=== PATIENT | male | born 1950 | race African-American/Black ===

== ENCOUNTER 2018-10-08 10:04 | Inpatient (IN) | payer OTHER ==
[2018-10-08] MEDS ORDERED: ASPIRIN 81 MG CHEWABLE TABLETS PO ONE (10:08)
[2018-10-08] MEDS ORDERED: ADENOSINE 6 MG/2 ML VIAL IVPUSH ONE ×2 (10:15→10:18)
[2018-10-08] MEDS ORDERED: dilTIAZem HCL 50 MG/10 ML - 10 ML VIAL ONE (10:23)
[2018-10-08] MEDS ORDERED: dilTIAZem HCL 50 MG/10 ML - 10 ML VIAL IVPUSH ONE (10:23)
[2018-10-08] MEDS ORDERED: dilTIAZem HCL 30 MG TABLET (FP) PO ONE (10:29)
[2018-10-08] MEDS ORDERED: ASPIRIN 81 MG CHEWABLE TABLETS ONE (10:32)
[2018-10-08] MEDS ORDERED: dilTIAZem HCL 30 MG TABLET (FP) ONE (10:32)
[2018-10-08 10:35] VITALS: BMI 30.7
--- NOTE | 2018-10-08 10:36 | PDOC ---
History of Present Illness - General Chief Complaint: Shortness of Breath Stated Complaint: SHORTHNESS OF BREATH Time Seen by Provider: 10/08/18 10:08 History Source: Patient Exam Limitations: No Limitations - History of Present Illness Initial Comments: 67 yo m w a pmh of HTN and diabetes presents to the ER short of breath and with mild chest pain. The patient has been experiencing increased dyspnea on exertion for the past week which has been getting worse. He became acutely short of breath and developed some palpitations this morning so he came into the ER to be evaluated. Upon arrival to the ER he was tachycardic to 165 and short of breath. He was immediately placed on the monitor and given two large bore IV's. EKG performed showed the patient was in SVT at a rate of 165. We gave the patient 6 mg of adenosine which slowed him down temporarily but the patient quickly reverted back to ~160' s. We then gave the patient a liter of fluid along with diltiazem and the patient's heart rate normalized to ~100. The patient experieced rather quick relief of his symptoms. PCP: Edgard Varma PSH: Left eye surgery Social Hx: Denies smoking, drinking, or other substance usage. Allergies: NKA, NKDA Past History - Past Medical History Allergies/Adverse Reactions: Allergies Allergy/AdvReac Type Severity Reaction Status Date / Time No Known Allergies Allergy Verified 10/08/18 10:24 Home Medications: Ambulatory Orders NIFEdipine XL [Adalat Cc] 30 mg NR DAILY 12/26/11 metFORMIN HCL [Glucophage] 1,000 mg PO BID 12/26/11 Aspirin 81 mg PO DAILY 10/08/18 Cardiac Disorders: Yes (?? valve problem..) COPD: No Diabetes: Yes HTN: Yes - Surgical History Abdominal Surgery: No - Suicide/Smoking/Psychosocial Hx Smoking Status: No Smoking History: Never smoked Have you smoked in the past 12 months: No Number of Cigarettes Smoked Daily: 0 Information on smoking cessation initiated: No Hx Alcohol Use: No Drug/Substance Use Hx: No Review of Systems - Review of Systems Able to Perform ROS?: Yes Constitutional: No: Chills, Diaphoresis, Fever HEENTM: No: Eye Pain, Blurred Vision Respiratory: Yes: Shortness of Breath, SOB with Exertion, SOB at Rest Cardiac (ROS): Yes: Chest Pain, Lightheadedness, Palpitations ABD/GI: No: Constipated, Diarrhea, Nausea, Poor Fluid Intake, Vomiting : No: Burning, Dysuria, Discharge Musculoskeletal: No: Back Pain, Joint Pain Integumentary: No: Bruising, Change in Color, Dryness, Erythema, Pallor, Pruritus, Rash Neurological: No: Headache, Numbness, Paresthesia Psychiatric: No: Anxiety, Depression, Frequent Crying, Stressors Endocrine: No: Excessive Sweating, Flushing, Intolerance to Cold, Intolerance to Heat Hematologic/Lymphatic: No: Anemia, Blood Clots, Easy Bleeding *Physical Exam - Vital Signs Last Vital Signs Temp Pulse Resp BP Pulse Ox 97.3 F L 88 18 115/66 100 10/08/18 10:22 10/08/18 10:29 10/08/18 10:29 10/08/18 10:10/08/18 10:29 - Physical Exam General Appearance: Yes: Nourished, Appropriately Dressed, Moderate Distress, Obese HEENT: positive: EOMI, EBER, Normal ENT Inspection, Normal Voice, TMs Normal Neck: positive: Supple Respiratory/Chest: positive: Lungs Clear, Respiratory Distress, Labored Respiration, Rapid RR. negative: Crackles, Rales, Rhonchi, Stridor, Wheezing Cardiovascular: positive: Regular Rhythm, S1, S2, Tachycardia Vascular Pulses: Dorsalis-Pedis (R): 2+, Doralis-Pedis (L): 2+ Gastrointestinal/Abdominal: positive: Normal Bowel Sounds, Soft Rectal Exam: positive: deferred Lymphatic: negative: Adenopathy Musculoskeletal: positive: Normal Inspection. negative: CVA Tenderness Extremity: positive: Normal Capillary Refill, Normal Inspection, Normal Range of Motion Integumentary: positive: Normal Color, Dry, Warm Neurologic: positive: stockholder II-XII NML intact, Fully Oriented, Alert, Normal Mood/ Affect, Normal Response, Motor Strength 5/5 Procedures - Bedside Ultrasound Bedside Ultrasound: Cardiac Remarks: Patient has a large pericardial effusion and early signs of tamponade. There is mild right ventricular collapse. ED Treatment Course - LABORATORY CBC & Chemistry Diagram: 10/08/18 10:10/08/18 10:04 - RADIOLOGY Radiology Studies Ordered: Category Date Time Status CHEST PA & LAT [RAD] Stat Radiology 10/08/18 10:08 Ordered Radiograph Interpretation: CXR: AP portable chest: Shortness of breath. Supraventricular tachycardia A single apical lordotic view reveals a large heart, unfolded aorta and well expanded lung vasquez. There is no sign of infiltrate or failure. The angles are sharp. The soft tissues are intact. There is a slightly elevated right hemidiaphragm. Impression: Large heart. Elevated right hemidiaphragm. No acute chest pathology. - Medications Given in the ED: ED Medications Discontinued Medications Generic Name Dose Route Start Last Admin Trade Name Al PRN Reason Stop Dose Admin Adenosine 6 mg 10/08/18 10:18 10/08/18 10:10 Adenocard - IVPUSH 10/08/18 10:19 6 mg ONCE ONE Administration Diltiazem HCl 10 mg 10/08/18 10:23 10/08/18 10:23 Cardizem Injection - IVPUSH 10/08/18 10:24 10 mg ONCE ONE Administration Medical Decision Making - Critical Care Time Total Critical Care Time (minutes): 50 Critical Care Statement: The care of this patient involved high complexity decision making to prevent further life threatening deterioration of the patient 's condition and/or to evaluate & treat vital organ system(s) failure or risk of failure. - Medical Decision Making 67 yo m w a pmh of HTN and diabetes presents to the ER short of breath and with mild chest pain. The patient has been experiencing increased dyspnea on exertion for the past week which has been getting worse. He became acutely short of breath and developed some palpitations this morning so he came into the ER to be evaluated. Upon arrival to the ER he was tachycardic to 165 and short of breath. He was immediately placed on the monitor and given two large bore IV's. EKG performed showed the patient was in SVT at a rate of 165. We gave the patient 6 mg of adenosine which slowed him down temporarily but the patient quickly reverted back to ~160' s. We then gave the patient a liter of fluid along with diltiazem and the patient's heart rate normalized to ~100. The patient experieced rather quick relief of his symptoms. VS: Tachycardic, tachypneic DDx IBNLT: ACS/TX, Arrhythmia - SVT vs A-Fib, electrolyte/metabolic disturbance , PNA, pneumothorax, PE, medication side effect. Labs show elevated BNP and negative troponin. Plan: Labs, cardiac monitoring, CXR, PO dilt, Admit Tele. - Patient endorsed to Dr. Ruiz and accepted for admission to telemetry. - D-Dimer sent at request of Dr. Ruiz - D-Dimer elevated. Patient to get CTA to r/o PE. POCUS performed and shows large pericardial effusion. The ECHO suggests that the patient is experiencing early signs of tamponade. - Patient will be transfered to a center with a cardiothoracic surgeon capabilities to obtain a pericardial window. *DC/Admit/Observation/Transfer Diagnosis at time of Disposition: Chest pain, SOB (shortness of breath), Elevated brain natriuretic peptide (BNP ) level, SVT (supraventricular tachycardia), Pericardial effusion - Discharge Dispostion Condition at time of disposition: Guarded Decision to Admit order: Yes - Referrals - Patient Instructions - Post Discharge Activity
[2018-10-08 10:41] LABS: BASO % 0.4 % (0-2.0); EOS % 4.5 % (0-4.5); HEMATOCRIT 42.8 % (35.4-49); HEMOGLOBIN 14.3 GM/dL (11.7-16.9); LYMPH % 37.7 % (8-40); MCH 27.5 pg (25.7-33.7); MCHC 33.4 g/dl (32.0-35.9); MEAN CELL VOLUME 82.3 fl (80-96); MEAN PLT VOLUME 8.4 fl (7.5-11.1); NEUT % 48.4 % (42.8-82.8); PLATELET COUNT 358 K/MM3 (134-434); RDW 13.3 % (11.9-15.9)
[2018-10-08 10:44] LABS: INR 1.13 (0.83-1.09); PROTHROMBIN TIME (PATIENT) 13.4 SEC (9.7-13.0)
[2018-10-08 10:46] LABS: ACTIVATED PTT 34.1 SECONDS (25.2-36.5)
--- NOTE | 2018-10-08 10:47 | PDOC ---
Documentation entered by Janessa Harkins SCRIBE, acting as scribe for Nicholas Whitfield MD. Nicholas Whitfield MD: This documentation has been prepared by the Shahana luciano Sammi, SCRIBE, under my direction and personally reviewed by me in its entirety. I confirm that the documentation accurately reflects all work, treatment, procedures, and medical decision making performed by me. Attending Attestation - Resident Resident Name: Preston Stewart - ED Attending Attestation I have performed the following: I have examined & evaluated the patient, The case was reviewed & discussed with the resident, I agree w/resident's findings & plan - HPI HPI: 10/08/18 10:34 67y/o M HTN, DM in onh until about one week ago, when he began developing dyspnea on exertion which has been constant and progressive, so he presents for evaluation. Pt reports occasional palpitations, comfort at rest but severe dyspnea on exertion without chest pain/pressure. Occasional bouts of light- headedness lasting seconds then resolving, no LOC. no f/c/cough. Did report exacerbation of his seasonal allergies earlier this week, which he self-treats with claritin-D and took this daily for 3-4 days starting about a week ago. Does note an episode of light-headedness after taking the first dose. Colleen any h/o CAD or cardiac arrhythmia. He was seen by his PCP 3d ago but evaluation at that time was wnl. - Physicial Exam PE: 10/08/18 10:38 Presents to the emergency department tachypneic, severely tachycardic to 170, otherwise alert and mentating and ambulating Seen immediately upon arrival and placed on monitor, EKG showed SVT at 169 IV access was obtained, supplemental oxygen was administered, patient was placed on monitoring Heart was regular tachycardia, lungs were clear, no calf tenderness or edema Adenosine 6 mg IV push was administered with expected bradycardia and brief ( about 1 minute) return to sinus rhythm. Patient felt well, tolerated the procedure well. Patient returned to SVT at 170, controlled now with diltiazem IV with improved HR to 90, BP also improved from 99 systolic to 110. abd benign, neuro normal - Critical Care Time Total Critical Care Time: 50 Critical Care Statement: The care of this patient involved high complexity decision making to prevent further life threatening deterioration of the patient 's condition and/or to evaluate & treat vital organ system(s) failure or risk of failure. - Medical Decision Making 10/08/18 10:40 67-year-old male with diabetes and hypertension who presents with dyspnea on exertion for one week, likely caused by SVT, which in turn was potentially caused by ALLERGY medications. Rule out underlying metabolic abnormalities such as electrolytes were DKA, rule out primary cardiac process such as ACS. Continue monitoring SVT converted to sinus with adenosine, then reverted back to SVT. Now controlled with diltiazem IV 1+ oral dose. Check labs, EKGs show T-wave inversions in the lateral leads 1 and aVL and V6 Aspirin Admission for overnight telemetry 10/08/18 11:05 trop negative, Cr 1.6 which is slightly elevated compared from prior from 2011. Lytes/glucose normal. Remains rate-controlled, will admit to tele. CXR with enlarged heart. Heart Score/ECG Review #1 ECG reviewed & interpreted by me at: 10:03 10/08/18 10:45 svt at 167, ST strain pattern lateral leads. #2 ECG reviewed & interpreted by me at: 10:13 General ECG Interpretation: Sinus Rhythm, Normal Rate (103), Normal Intervals ( qtc 421, AK 156), No acute ischemic changes (TWI I/AVL/V6) #3 ECG reviewed & interpreted by me at: 10:28 General ECG Interpretation: Sinus Rhythm, Normal Rate (88), Normal Intervals ( qtc 430), No acute ischemic changes (TWI I/AVL/V6)
[2018-10-08 10:59] LABS: ALK PHOS 109 U/L (45-117); ANION GAP 11 MMOL/L (8-16); BILIRUBIN,TOTAL 1.2 mg/dL (0.2-1); BLOOD UREA NITROGEN 19 mg/dL (7-18); CALCIUM 9.2 mg/dL (8.5-10.1); CHLORIDE 105 mmol/L (98-107); CO2 23 mmol/L (21-32); CREATININE 1.6 mg/dL (0.55-1.3); GLUCOSE,RANDOM 201 mg/dL (74-106); MAGNESIUM 1.9 mg/dL (1.8-2.4); N-TERMINAL BNP 639.4 pg/ml (5-125); POTASSIUM 4.4 mmol/L (3.5-5.1); SGOT/AST 32 U/L (15-37); SGPT/ALT 68 U/L (13-61); SODIUM 138 mmol/L (136-145); TOT PROT 7.8 g/dl (6.4-8.2)
[2018-10-08] MEDS ORDERED: ACETAMINOPHEN 325 MG TABLET (FP) PO PRN (12:07)
--- NOTE | 2018-10-08 12:14 | HP ---
Admitting History and Physical - Primary Care Physician PCP: Edgard Varma - Admission Chief Complaint: I'm short of breath History of Present Illness: Mr Spangler is a very pleasant 67 year old male who comes in with complaint of shortness of breath. He says that it has been going on for approximately 1-2 weeks. He says that mainly occurs with exertion, however it happens with minimal exertion. He says that he gets short of breath standing up, with eating , during shaving, with walking. It also occurs sometimes when he is lying down and he has to sit up. He saw Dr Varma and was examined which he states was normal, an EKG was done at that time and he states nothing was wrong. However he was told that if it recurred he should come back to the office. He says for the past 2 days after being seen it was fine but it occurred today and he came in. 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 He says he was told to stop and walk every 2-3 hours but he has not been able to do that. He also notes that over the past 2-3 months he has swelling in both legs but right greater than left. He notes it occurring more when he is driving and he puts his right leg up at night and it is mostly resolved in the am. He says that he has pain in that leg as well, mainly in the hip area but he attributes that to sitting for long hours. He says today his leg is not painful or swollen but he is lying down. He says with the shortness of breath he has fatigue, weakness, chest discomfort, and palpitations. He has questionable dizziness but denies it being either vertigo or lightheadedness. He denies passing out, chest pain or pressure, coughing, nausea, vomiting, diarrhea, constipation, difficulty or pain on urination. He is currently comfortable. History Source: Patient Limitations to Obtaining History: No Limitations - Past Medical History Cardiovascular: Yes: HTN, Hyperlipdemia Endocrine: Yes: Diabetes Mellitus - Past Surgical History Additional Past Surgical History: L eye surgery, cannot tell me what the surgery was for. Just that it is common in [facility]. Plan for cataract surgery in November. - Smoking History Smoking history: Never smoked Have you smoked in the past 12 months: No Aproximately how many cigarettes per day: 0 - Alcohol/Substance Use Hx Alcohol Use: No History of Substance Use: reports: None - Social History Usual Living Arrangement: Yes: With Spouse ADL: Independent Occupation: contract driver History of Recent Travel: No Home Medications - Allergies Allergies/Adverse Reactions: Allergies Allergy/AdvReac Type Severity Reaction Status Date / Time No Known Allergies Allergy Verified 10/08/18 10:24 - Home Medications Home Medications: Ambulatory Orders NIFEdipine XL [Adalat Cc] 30 mg NR DAILY 12/26/11 metFORMIN HCL [Glucophage] 1,000 mg PO BID 12/26/11 Aspirin 81 mg PO DAILY 10/08/18 Family Disease History - Family Disease History Family History: Denies (says all family members are healthy) Review of Systems Findings/Remarks: Full review of systems obtained, as per HPI and otherwise negative Physical Examination Vital Signs: Vital Signs Temperature 36.3 C L 10/08/18 10:22 Pulse Rate 88 10/08/18 10:40 Respiratory Rate 18 10/08/18 10:40 Blood Pressure 114/77 10/08/18 10:40 O2 Sat by Pulse Oximetry (%) 98 10/08/18 10:40 Constitutional: Yes: Well Nourished, No Distress, Calm Eyes: Yes: Conjunctiva Clear, EOM Intact, PERRL HENT: Yes: Atraumatic, Normocephalic Cardiovascular: Yes: Tachycardia, Pulse Irregular. No: Gallop, Murmur, Rub Respiratory: Yes: Regular, CTA Bilaterally. No: Rales, Rhonchi, Wheezes Gastrointestinal: Yes: Normal Bowel Sounds, Soft. No: Distention, Tenderness Extremities: Yes: WNL Edema: No Labs: CBC, BMP 10/08/18 10:04 10/08/18 10:04 Imaging - Results Chest X-ray: Report Reviewed, Image Reviewed Cat Scan: Pending Ultrasound: Pending Problem List - Problems (1) SOB (shortness of breath) Assessment/Plan: -very concerning for PE considering occupation, long hours of driving, and leg swelling that currently resolved -also considering presented with SVT/sinus tachycardia and SOB -d-dimer slightly elevated, but if occurred 1-2 weeks ago then can be decreased -admit to telemetry -CTA ordered -will give empiric dose of eliquis now -monitor, patient is currently stable -check venous duplex dopplers Code(s): R06.02 - SHORTNESS OF BREATH (2) SVT (supraventricular tachycardia) Assessment/Plan: -presented with SVT in ED -was given adenosine but did not break -then given diltiazem and slowed down -note that it does increase at times when he speaks -very suspicious for PE -as above -also place cardiology consult -will send cardiac enzymes x3 Code(s): I47.1 - SUPRAVENTRICULAR TACHYCARDIA (3) Elevated d-dimer Assessment/Plan: -as above Code(s): R79.89 - OTHER SPECIFIED ABNORMAL FINDINGS OF BLOOD CHEMISTRY (4) HTN (hypertension) Assessment/Plan: -will currently hold nifedipine as is well controlled -monitor Code(s): I10 - ESSENTIAL (PRIMARY) HYPERTENSION (5) HLD (hyperlipidemia) Assessment/Plan: -do not know lipid medication -will hold off as not emergent Code(s): E78.5 - HYPERLIPIDEMIA, UNSPECIFIED (6) Diabetes Assessment/Plan: -creatinine 1.6 so will hold on metformin -diabetic diet -FSBS and SSI Code(s): E11.9 - TYPE 2 DIABETES MELLITUS WITHOUT COMPLICATIONS (7) ANTONETTE (acute kidney injury) Assessment/Plan: -suspect may be secondary from hypotension if was having arrhythmias -hydration with NS -will also give mucomyst since getting CT scan with PE protocol Code(s): N17.9 - ACUTE KIDNEY FAILURE, UNSPECIFIED
[2018-10-08] MEDS ORDERED: ACETYLCYSTEINE 20% 200MG/ML 30 ML VIAL *FOR ORAL / INH USE ONLY PO SCH (12:15)
[2018-10-08] MEDS ORDERED: SODIUM CHLORIDE 1,000 ML IV SCH (12:15)
[2018-10-08] MEDS ORDERED: APIXABAN 5 MG TABLET PO SCH (12:15)
[2018-10-08 13:16] LABS: URINE APPEARANCE CLEAR; URINE BILIRUBIN NEGATIVE (NEGATIVE); URINE COLOR YELLOW; URINE GLUCOSE (UA) NEGATIVE (NEGATIVE); URINE KETONE NEGATIVE (NEGATIVE); URINE LEUK ESTERASE NEGATIVE (NEGATIVE); URINE NITRITE NEGATIVE (NEGATIVE); URINE PROTEIN NEGATIVE (NEGATIVE); URINE UROBILINOGEN 0.2 mg/dL (0.2-1.0)
[2018-10-08] MEDS ORDERED: INSULIN SLIDING SCALE (NOVOLOG) 1 VIAL SQ SCH (16:30)
--- NOTE | 2018-10-08 17:18 | DS ---
Physical Examination Vital Signs: Vital Signs Temperature 36.3 C L 10/08/18 10:22 Pulse Rate 98 H 10/08/18 13:40 Respiratory Rate 30 H 10/08/18 13:40 Blood Pressure 112/77 10/08/18 13:40 O2 Sat by Pulse Oximetry (%) 100 10/08/18 13:40 Constitutional: Yes: Well Nourished, No Distress, Calm Cardiovascular: Yes: Regular Rate and Rhythm. No: Gallop, Murmur, Rub Respiratory: Yes: CTA Bilaterally, On Nasal O2, Tachypnea. No: Regular, Rales, Rhonchi, Wheezes Gastrointestinal: Yes: Normal Bowel Sounds, Soft. No: Distention, Tenderness Extremities: Yes: WNL Edema: No Labs: CBC, BMP 10/08/18 10:04 10/08/18 10:04 Discharge Summary Reason For Visit: ELEVATED BRAIN NATRIURETIC PEPTIDE(BNP) LEVEL Current Active Problems ANTONETTE (acute kidney injury) (Acute) Chest pain (Acute) Diabetes (Acute) Elevated brain natriuretic peptide (BNP) level (Acute) Elevated d-dimer (Acute) HLD (hyperlipidemia) (Acute) HTN (hypertension) (Acute) SOB (shortness of breath) (Acute) SVT (supraventricular tachycardia) (Acute) Hospital Course: Mr Spangler is a very pleasant 67 year old male who comes in with complaint of shortness of breath. He presented to the ED and was found to have SVT, he was given adenosine but this did not control it. He was then given IV and oral diltiazem and his heart rate became controlled. He was also placed on oxygen and he felt improved. At this point I was called for admission, please refer to my H&P but per his history I was very concerned for PE. D-dimer was ordered and was slightly elevated, so CT scan with PE protocol and venous duplex dopplers were ordered and performed. Because I noted that when he spoke his HR would elevate, I was concerned he might be unstable and gave empiric eliquis 10mg x1 and admitted him to telemetry. CT scan came back negative for PE but positive for pericardial effusion. Call was placed to Dr Boyd who was made aware of the situation and recommended admission to either telemetry or ICU. Because patient was having episodes of tachycardia and tachypnea I planned to escalate from telemetry to ICU, call was placed and spoke with the critical care nurse practitioner. After discussion there was concern that we do not have the services appropriate to treat this patient urgently, especially if he became acutely unstable. A bedside ECHO was performed by the ER (we do not have ECHO services on the weekend), and he was found to have the beginnings of tamponade per bedside ECHO. At this point it was felt by all physicians involved in Mr Spangler's care that he would be better served by transferring to a tertiary care center. Case was discussed with him and his daughters and they decided they would prefer transfer to [facility] for further care. Dr Boyd was called back and he the findings of the bedside ECHO were discussed, he accepted the patient in transfer to [facility]. Condition: Guarded - Instructions Referrals: Edgard Varma MD [Primary Care Provider] - Disposition: TRANSFER ACUTE CARE/OTHER HOSP - Home Medications Comprehensive Discharge Medication List: Ambulatory Orders NIFEdipine XL [Adalat Cc] 30 mg NR DAILY 12/26/11 metFORMIN HCL [Glucophage] 1,000 mg PO BID 12/26/11 Aspirin 81 mg PO DAILY 10/08/18
[2018-10-08 18:01] VITALS: BP 137/78; PULSE 87; TEMP 98.2
--- NOTE | 2018-10-09 08:55 | EKG ---
Test Reason : Blood Pressure : / mmHG Vent. Rate : 167 BPM Atrial Rate : 166 BPM P-R Int : 000 ms QRS Dur : 088 ms QT Int : 274 ms P-R-T Axes : 000 025 159 degrees QTc Int : 457 ms POOR DATA QUALITY, INTERPRETATION MAY BE ADVERSELY AFFECTED SUPRAVENTRICULAR TACHYCARDIA NONSPECIFIC ST AND T WAVE ABNORMALITY ABNORMAL ECG WHEN COMPARED WITH ECG OF 26-DEC-2011 09:14, [place] INTERVAL HAS DECREASED VENT. RATE HAS INCREASED BY 112 BPM NON-SPECIFIC CHANGE IN ST SEGMENT IN LATERAL LEADS NONSPECIFIC T WAVE ABNORMALITY, WORSE IN INFERIOR LEADS Confirmed by KARINA SIMONS, STUART ([id number]) on 10/09/2018 8:55:21 AM Referred By: Confirmed By:STUART COLLINS MD
[2018-10-09] MEDS ORDERED: ASPIRIN 81 MG CHEWABLE TABLETS PO SCH (10:00)
--- NOTE | 2018-10-09 15:03 | EKG ---
Test Reason : Blood Pressure : / mmHG Vent. Rate : 103 BPM Atrial Rate : 103 BPM P-R Int : 156 ms QRS Dur : 070 ms QT Int : 322 ms P-R-T Axes : 039 003 269 degrees QTc Int : 421 ms POOR DATA QUALITY, INTERPRETATION MAY BE ADVERSELY AFFECTED SINUS TACHYCARDIA WITH OCCASIONAL PREMATURE VENTRICULAR COMPLEXES NONSPECIFIC ST AND T WAVE ABNORMALITY ABNORMAL ECG WHEN COMPARED WITH ECG OF 08-OCT-2018 10:03, PREMATURE VENTRICULAR COMPLEXES ARE NOW PRESENT VENT. RATE HAS DECREASED BY 64 BPM NON-SPECIFIC CHANGE IN ST SEGMENT IN LATERAL LEADS Confirmed by STUART COLLINS MD ([id number]) on 10/09/2018 3:02:54 PM Referred By: Confirmed By:STUART COLLINS MD
--- NOTE | 2018-10-09 15:03 | EKG ---
Test Reason : Blood Pressure : / mmHG Vent. Rate : 088 BPM Atrial Rate : 088 BPM P-R Int : 230 ms QRS Dur : 076 ms QT Int : 346 ms P-R-T Axes : 047 007 076 degrees QTc Int : 418 ms SINUS RHYTHM WITH 1ST DEGREE A-V BLOCK NONSPECIFIC T WAVE ABNORMALITY ABNORMAL ECG WHEN COMPARED WITH ECG OF 08-OCT-2018 10:13, PREMATURE VENTRICULAR COMPLEXES ARE NO LONGER PRESENT ID INTERVAL HAS INCREASED Confirmed by KARINA SIMONS, STUART ([id number]) on 10/09/2018 3:02:58 PM Referred By: Confirmed By:STUART COLLINS MD
== END 2018-10-08 18:00 | disposition short-term general hospital (02) | DRG 315 ==
LOC: JER 10:04 → JERBED 11:06
PROVIDERS: ADMIT Internal Medicine; ATTEND Internal Medicine
DX: I31.3 Pericardial effusion (noninflammatory) (principal); N17.9 Acute kidney failure, unspecified; I47.1 Supraventricular tachycardia; I31.4 Cardiac tamponade; E78.5 Hyperlipidemia, unspecified; I10 Essential (primary) hypertension; E11.9 Type 2 diabetes mellitus without complications; R79.89 Other specified abnormal findings of blood chemistry
CPT/HCPCS: 36415; 71045-TC-FY; 71275-TC; 80053; 81003; 82550; 82962; 83605; 83735; 83880; 84484; 85025; 85379; 85610; 85730; 86850; 86900; 86901; 93005; 93010; 93970-TC; 99285-25; J7030

== ENCOUNTER 2020-10-22 06:52 | Emergency (ER) | payer OTHER ==
[2020-10-22 07:23] VITALS: BP 111/78; PULSE 89; TEMP 98.2; BMI 30.1
[2020-10-22] MEDS ORDERED: IBUPROFEN 400 MG TABLET (FP) PO ONE ×2 (08:33→08:36)
== END 2020-10-22 08:54 | disposition home or self-care (01) ==
LOC: JER 06:52
DX: S01.531A Puncture wound without foreign body of lip, initial encounter (principal); S00.83XA Contusion of other part of head, initial encounter
CPT/HCPCS: 70100-TC-FY; 70330-TC-FY; 99284-25